=== PATIENT | male | born 1960 | race Caucasian/White ===

== ENCOUNTER 2017-01-15 16:31 | Emergency (ER) | payer OTHER ==
[2017-01-15 16:55] VITALS: BP 137/71; PULSE 64; TEMP 98.2; BMI 37.0
--- NOTE | 2017-01-15 17:33 | PDOC ---
History of Present Illness - General Chief Complaint: Back Pain Stated Complaint: BACK ACHE Time Seen by Provider: 01/15/17 17:15 History Source: Patient Exam Limitations: No Limitations - History of Present Illness Initial Comments: CHIEF COMPLAINT: 56 y/o afebrile male with PMH slipped disc L4-L5, HTN c/o left low back pain radiating into his left leg. HISTORY OF PRESENT ILLNESS: The patient states the pain started a week ago without trauma. He doesn't remember doing anything in particular when it started. 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 He denies trauma to back, fall, saddle anesthesia, midline lumbar spine pain, numbness/ tingling in LEs. The patient is already on Naproxen and gabapentin for his normal back pain. He sees a neurologist for his back as well but has not called him yet for these symptoms. Vital signs on arrival are within normal limits. REVIEW OF SYSTEMS: GENERAL/CONSTITUTIONAL: No fever/chills. No weakness. No weight change. GASTROINTESTINAL: No abd pain, nausea, vomiting, diarrhea. GENITOURINARY: No dysuria, frequency, or change in urination. MUSCULOSKELETAL: No joint or muscle swelling or pain. No neck pain. +left low back pain. SKIN: No rash or easy bruising. NEUROLOGIC: No headache, vertigo, loss of consciousness, or loss of sensation. PHYSICAL EXAM: GENERAL: The patient is awake, alert, and fully oriented, in no acute distress. He is well appearing and ambulatory with normal gait. HEAD: Normal with no signs of trauma. ABDOMEN: Soft, non-distended, non-tender even to deep palpation, no hepatomegaly or splenomegaly, no masses. BACK: No midline lumbar spine TTP or step offs. Minimal TTP of left lumbar paravertebral muscles. EXTREMITIES: Normal range of motion, no edema. NEUROLOGICAL: Normal speech, normal gait. CN II-XII grossly intact. No saddle anesthesia. Equal straight leg raise b/l. 2+ LE reflexes. SKIN: Warm, dry, normal turgor, no rashes or lesions noted. Past History - Past Medical History Allergies/Adverse Reactions: Allergies Allergy/AdvReac Type Severity Reaction Status Date / Time Shellfish Allergy Swelling Verified 01/15/17 16:35 Home Medications: Ambulatory Orders Methocarbamol [Robaxin -] 1,000 mg PO TID #20 tablet 01/15/17 HTN: Yes - Immunization History Td Vaccination: No - Psycho/Social/Smoking Cessation Hx Anxiety: No Suicidal Ideation: No Smoking Status: No Smoking History: Never smoked Number of Cigarettes Smoked Daily: 0 Hx Alcohol Use: No Drug/Substance Use Hx: No Substance Use Type: None *Physical Exam - Vital Signs Last Vital Signs Temp Pulse Resp BP Pulse Ox 98.2 F 64 18 137/71 97 01/15/17 16:32 01/15/17 16:32 01/15/17 16:32 01/15/17 16:32 01/15/17 16:32 Medical Decision Making - Medical Decision Making A/P: 56 y/o male with left lower back pain. Pain seems muscular in nature. No report of an injury. since the patient is already taking naproxen and gabapentin I will discharge to home with rx for robaxin. Informed him it may cause drowsiness. Instructed him to apply heat and stretch the affected area. Suggested he f/u with his Neurologist in 1 week if no improvement in symptoms, and return to the ER with any worsening or concerning symptoms. The patient verbalizes understanding of all instructions, has no further questions and is awaiting discharge. *DC/Admit/Observation/Transfer Diagnosis at time of Disposition: Back pain Qualifiers: Back pain location: low back pain Chronicity: acute Back pain laterality: left Sciatica presence: with sciatica Sciatica laterality: sciatica of left side Qualified Code(s): M54.42 - Lumbago with sciatica, left side - Discharge Dispostion Disposition: HOME Condition at time of disposition: Good - Prescriptions Prescriptions: Methocarbamol [Robaxin -] 1,000 mg PO TID #20 tablet - Referrals Referrals: Mika Bergeron MD [Primary Care Provider] - - Patient Instructions Printed Discharge Instructions: DI for Back Pain With Sciatica Additional Instructions: Discharge Instructions: -Take Robaxin as prescribed if needed for back pain; may cause drowsiness -Continue taking all other medication as prescribed -Apply heating pad to affected area -Massage affected area -Follow up with your back doctor/Neurologist within 1 week if no improvement in symptoms
== END 2017-01-15 17:42 | disposition home or self-care (01) ==
LOC: JER 16:31 → JERFT 16:31
DX: M54.42 Lumbago with sciatica, left side (principal); I10 Essential (primary) hypertension
CPT/HCPCS: 99281-25

== ENCOUNTER 2018-07-20 11:18 | Emergency (ER) | payer OTHER ==
[2018-07-20 11:25] VITALS: BP 114/70; PULSE 87; TEMP 98.3; BMI 38.2
[2018-07-20] MEDS ORDERED: FAMOTIDINE 20 MG/50 ML IVPB 20 MG/50 ML MG IVPB ONE ×2 (12:31→12:47)
[2018-07-20] MEDS ORDERED: ONDANSETRON 4 MG/2 ML VIAL IVPUSH ONE (12:31)
[2018-07-20] MEDS ORDERED: SODIUM CHLORIDE 1,000 ML IV STA (12:31)
--- NOTE | 2018-07-20 12:44 | PDOC ---
Attending Attestation - Resident Resident Name: EhabigailEliseo - ED Attending Attestation I have performed the following: I have examined & evaluated the patient, The case was reviewed & discussed with the resident, I agree w/resident's findings & plan, Exceptions are as noted - HPI HPI: 07/20/18 16:28 Agree with residents HPI - Physicial Exam PE: 07/20/18 16:28 Agree with Residents PE - Medical Decision Making 07/20/18 16:29 58 years old presents emergency Department with nausea vomiting diarrhea and epigastric abdominal discomfort No travel no sick contacts well-appearing mild upper abdominal discomfort on examination We'll check labs hydrate GI cocktail observe and reassess Reevaluation patient feels much better now tolerating fluids by mouth abdominal pain is him is completely resolved Labs notable for slightly elevated WBC which is consistent with a viral process no indication for imaging at this time Patient instructed to return to the emergency department immediately for any severe worsening symptoms any worsening abdominal pain inability tolerate fluids or for any concerns. Findings, need follow-up and strict return instructions discussed patient.
[2018-07-20] MEDS ORDERED: ONDANSETRON 4 MG/2 ML VIAL ONE (12:47)
[2018-07-20 12:54] LABS: BASO % 0.7 % (0-2.0); EOS % 1.4 % (0-4.5); HEMATOCRIT 47.2 % (35.4-49); LYMPH % 9.9 % (8-40); MCH 28.4 pg (25.7-33.7); MCHC 33.9 g/dl (32.0-35.9); MEAN CELL VOLUME 83.8 fl (80-96); MEAN PLT VOLUME 9.1 fl (7.5-11.1); MONO % 8.9 % (3.8-10.2); NEUT % 79.1 % (42.8-82.8); PLATELET COUNT 365 K/MM3 (134-434); RBC 5.64 M/mm3 (4.00-5.60); RDW 14.6 % (11.9-15.9); WHITE BLOOD COUNT 15.1 K/mm3 (4.0-10.0)
[2018-07-20 13:30] LABS: ALK PHOS 94 U/L (45-117); ANION GAP 7 MMOL/L (8-16); BILIRUBIN,TOTAL 0.5 mg/dL (0.2-1); BLOOD UREA NITROGEN 31 mg/dL (7-18); CALCIUM 8.8 mg/dL (8.5-10.1); CHLORIDE 104 mmol/L (98-107); CO2 28 mmol/L (21-32); CREATININE 1.3 mg/dL (0.55-1.3); GLUCOSE,RANDOM 115 mg/dL (74-106); LIPASE 73 U/L (73-393); POTASSIUM 3.8 mmol/L (3.5-5.1); SGOT/AST 19 U/L (15-37); SGPT/ALT 28 U/L (13-61); SODIUM 138 mmol/L (136-145); TOT PROT 7.5 g/dl (6.4-8.2)
[2018-07-20] MEDS ORDERED: SODIUM CHLORIDE 0.9% 1000 ML INFUS.BAG IV ONE (14:34)
[2018-07-20] MEDS ORDERED: ACETAMINOPHEN 1000 MG/100 ML VIAL (NON FORMULARY) IVPB ONE (14:34)
[2018-07-20 14:44] LABS: URINE APPEARANCE CLEAR; URINE BILIRUBIN NEGATIVE (<2.0 mg/dL); URINE COLOR YELLOW; URINE GLUCOSE (UA) NEGATIVE (NEGATIVE); URINE KETONE NEGATIVE (NEGATIVE); URINE LEUK ESTERASE NEGATIVE (NEGATIVE); URINE NITRITE NEGATIVE (NEGATIVE); URINE PROTEIN NEGATIVE (NEGATIVE); URINE UROBILINOGEN NEGATIVE mg/dL (0.2-1.0)
[2018-07-20] MEDS ORDERED: ACETAMINOPHEN INJECTION 100 ML IVPB ONE (15:05)
--- NOTE | 2018-07-20 15:40 | PDOC ---
History of Present Illness - General Chief Complaint: Pain Stated Complaint: ABD PAIN Time Seen by Provider: 07/20/18 12:26 History Source: Patient Exam Limitations: No Limitations - History of Present Illness Initial Comments: 07/20/18 15:33 Patient is a 58M with history of HTN here today complaining of 12 hours of epigastric abdominal pain and diarrhea after eating thai food. Patient reports multiple episodes of watery diarrhea that kept him up all night. No fevers, chills, vomiting. Endorses nausea. Denies dysuria, prior abdominal surgery. Denies chest pain, shortness of breath, leg swelling. Past History - Past Medical History Allergies/Adverse Reactions: Allergies Allergy/AdvReac Type Severity Reaction Status Date / Time Shellfish Allergy Swelling Verified 07/20/18 11:24 Home Medications: Ambulatory Orders Ondansetron [Zofran *Odt*] 8 mg SL BID #10 od.tablet 07/20/18 COPD: No HTN: Yes Other medical history: obesity - Immunization History Td Vaccination: No - Suicide/Smoking/Psychosocial Hx Smoking Status: No Smoking History: Never smoked Number of Cigarettes Smoked Daily: 0 Information on smoking cessation initiated: No Hx Alcohol Use: No Drug/Substance Use Hx: No Substance Use Type: None Review of Systems - Review of Systems Comments:: 07/20/18 15:36 GENERAL/CONSTITUTIONAL: No fever or chills. No weakness. HEAD, EYES, EARS, NOSE AND THROAT: No change in vision. No sore throat. CARDIOVASCULAR: No chest pain or shortness of breath RESPIRATORY: No cough, wheezing, or hemoptysis. GASTROINTESTINAL: +nausea, +diarrhea GENITOURINARY: No dysuria, frequency, or change in urination. MUSCULOSKELETAL: No joint or muscle swelling or pain. No neck or back pain. SKIN: No rash NEUROLOGIC: No headache, vertigo, loss of consciousness, or change in strength/ sensation. ENDOCRINE: No increased thirst. No abnormal weight change HEMATOLOGIC/LYMPHATIC: No anemia, easy bleeding, or history of blood clots. ALLERGIC/IMMUNOLOGIC: No hives or skin allergy. *Physical Exam - Vital Signs Last Vital Signs Temp Pulse Resp BP Pulse Ox 98.3 F 87 18 114/70 98 07/20/18 11:22 07/20/18 11:22 07/20/18 11:22 07/20/18 11:22 07/20/18 11:22 - Physical Exam Comments: 07/20/18 15:36 GENERAL: Awake, alert, and fully oriented, in no acute distress HEAD: No signs of trauma, normocephalic, atraumatic EYES: PERRLA, EOMI, sclera anicteric, conjunctiva clear ENT: Auricles normal inspection, hearing grossly normal, nares patent, oropharynx clear without exudates. Dry mucosa NECK: Normal ROM, supple, no lymphadenopathy, JVD, or masses LUNGS: No distress, speaks full sentences, clear to auscultation bilaterally HEART: Regular rate and rhythm, normal S1 and S2, no murmurs, rubs or gallops, peripheral pulses normal and equal bilaterally. ABDOMEN: Soft, mild epigastric abdominal pain, normoactive bowel sounds. No guarding, no rebound. No masses EXTREMITIES: Normal inspection, Normal range of motion, no edema. No clubbing or cyanosis. NEUROLOGICAL: Cranial nerves II through XII grossly intact. Normal speech, normal gait, no focal sensorimotor deficits SKIN: Warm, Dry, normal turgor, no rashes or lesions noted. ED Treatment Course - LABORATORY CBC & Chemistry Diagram: 07/20/18 12:33 07/20/18 12:44 - ADDITIONAL ORDERS Additional order review: Laboratory Results 07/20/18 07/20/18 14:30 12:44 Sodium 138 Potassium 3.8 Chloride 104 Carbon Dioxide 28 Anion Gap 7 L BUN 31 H Creatinine 1.3 Creat Clearance w eGFR 56.31 Random Glucose 115 H Calcium 8.8 Total Bilirubin 0.5 AST 19 ALT 28 Alkaline Phosphatase 94 Total Protein 7.5 Albumin 4.0 Lipase 73 Urine Color Yellow Urine Appearance Clear Urine pH 5.0 Ur Specific [place] 1.025 Urine Protein Negative Urine Glucose (UA) Negative Urine Ketones Negative Urine Blood Negative Urine Nitrite Negative Urine Bilirubin Negative Urine Urobilinogen Negative Ur Leukocyte Esterase Negative 07/20/18 12:33 RBC 5.64 H MCV 83.8 MCHC 33.9 RDW 14.6 MPV 9.1 Neutrophils % 79.1 Lymphocytes % 9.9 Monocytes % 8.9 Eosinophils % 1.4 Basophils % 0.7 - Medications Given in the ED: ED Medications Discontinued Medications Generic Name Dose Route Start Last Admin Trade Name Freq PRN Reason Stop Dose Admin Acetaminophen 1,000 mg 07/20/18 14:34 07/20/18 15:09 Ofirmev Injection - IVPB 07/20/18 14:35 1,000 mg ONCE ONE Administration Famotidine/Sodium Chloride 20 mg in 50 mls @ 100 mls/hr 07/20/18 12:31 12:54 Pepcid 20 Mg Premixed Ivpb - IVPB 07/20/18 13:00 100 mls/hr ONCE ONE Administration Sodium Chloride 1,000 mls @ 1,000 mls/hr 07/20/18 12:31 07/20/18 12:54 Normal Saline - IV 07/20/18 13:30 1,000 mls/hr ASDIR STA Administration Ondansetron HCl 4 mg 07/20/18 12:31 07/20/18 12:54 Zofran Injection IVPUSH 07/20/18 12:32 4 mg ONCE ONE Administration Sodium Chloride 1,000 ml 07/20/18 14:34 07/20/18 15:09 Normal Saline - IV 07/20/18 14:35 1,000 ml ONCE ONE Administration Medical Decision Making - Medical Decision Making 07/20/18 15:36 Patient is 58M here today with diarrhea and epigastric abdominal pain. Vitals normal and stable. DDx includes, but is not limited to: colitis, food poisoning , atypical acs. Low suspicion for acs, but patient is 58 with epigastric abd pain. Will do abdominal labs, trop, ekg. EKG shows normal sinus rhythm with rate of 68. No st elevations/depressions. Normal axis. Normal intervals. No significant t wave abnormalities. 07/20/18 15:40 Laboratory Tests 07/20/18 07/20/18 07/20/18 12:33 12:44 14:30 WBC 15.1 H Hgb 16.0 Plt Count 365 BUN 31 H Creatinine 1.3 Random Glucose 115 H Urine Nitrite Negative Ur Leukocyte Esterase Negative CBC shows leukocytosis. CMP reassuring. UA clear. Feeling better after 2L, tylenol, zofran, pepcid. Believe patient has food poisoning. No risk factors for bacterial colitis. No risk factors for C diff. Will discharge home with return precautions. *DC/Admit/Observation/Transfer Diagnosis at time of Disposition: Diarrhea, Abdominal pain - Discharge Dispostion Disposition: HOME Condition at time of disposition: Good Decision to Admit order: No - Prescriptions Prescriptions: Ondansetron [Zofran *Odt*] 8 mg SL BID #10 od.tablet - Referrals Referrals: Cathi Aguilar MD [Primary Care Provider] - - Patient Instructions Printed Discharge Instructions: DI for Abdominal Pain-Adult, DI for Diarrhea and Traveler's Diarrhea -- Adult Additional Instructions: Please return if you have any new, worsening or concerning symptoms, especially if you have fever, increasing pain. Please follow up with your primary care doctor. - Post Discharge Activity Forms/Work/School Notes: Back to Work
--- NOTE | 2018-07-20 17:10 | EKG ---
Test Reason : Blood Pressure : / mmHG Vent. Rate : 068 BPM Atrial Rate : 068 BPM P-R Int : 172 ms QRS Dur : 090 ms QT Int : 410 ms P-R-T Axes : 055 -43 -07 degrees QTc Int : 435 ms POOR DATA QUALITY, INTERPRETATION MAY BE ADVERSELY AFFECTED NORMAL SINUS RHYTHM LEFT AXIS DEVIATION VOLTAGE CRITERIA FOR LEFT VENTRICULAR HYPERTROPHY ABNORMAL ECG WHEN COMPARED WITH ECG OF 26-MAY-2018 14:27, NO SIGNIFICANT CHANGE WAS FOUND Confirmed by DAE DAMIAN MD ([id number]) on 07/20/2018 5:09:54 PM Referred By: Confirmed By:DAE DAMIAN MD
== END 2018-07-20 16:31 | disposition home or self-care (01) ==
LOC: JER 11:18
DX: R10.13 Epigastric pain (principal); R11.2 Nausea with vomiting, unspecified; R19.7 Diarrhea, unspecified; I10 Essential (primary) hypertension; E66.9 Obesity, unspecified; Z68.38 Body mass index [BMI] 38.0-38.9, adult
CPT/HCPCS: 36415; 80053; 81003; 82550; 83690; 84484; 85025; 93005; 93010; 99283-25; J0131; J7030

== ENCOUNTER 2018-07-21 05:08 | Inpatient (IN) | payer OTHER ==
[2018-07-21 05:27] VITALS: BMI 37.4
--- NOTE | 2018-07-21 06:25 | PDOC ---
History of Present Illness - History of Present Illness Initial Comments: 58yo M with PMH of HTN presenting with epigastric pain since Tuesday. Patient presented yesterday for similar complaint and worsens because his pain has worsened, now rated 10/10, up from 8/10. He has had frequent episodes of profuse , watery diarrhea without blood. Patient endorses nausea, but not vomiting. He has not taken anything at home for his symptoms except for immodium on Tuesday. Denies history of heavy alcohol consumption, abdominal surgeries, ulcers, gallstones, kidney stones, or pancreatitis. Last had a colonoscopy 8 years ago. Patient reports some shortness of breath when his abdominal pain exacerbates. No fevers, chills, chest pain, dysuria, or hematuria. <Court Calzada - Last Filed: 07/21/18 08:17> <Eliseo Oswald - Last Filed: 07/21/18 13:16> - General Chief Complaint: Pain Stated Complaint: ABD PAIN Time Seen by Provider: 07/21/18 05:59 Past History - Past Medical History COPD: No HTN: Yes - Immunization History Td Vaccination: No - Suicide/Smoking/Psychosocial Hx Smoking Status: No Smoking History: Never smoked Have you smoked in the past 12 months: No Number of Cigarettes Smoked Daily: 0 Information on smoking cessation initiated: No Hx Alcohol Use: No Drug/Substance Use Hx: No Substance Use Type: None <Court Calzada - Last Filed: 07/21/18 08:17> <Eliseo Oswald - Last Filed: 07/21/18 13:16> - Past Medical History Allergies/Adverse Reactions: Allergies Allergy/AdvReac Type Severity Reaction Status Date / Time No Known Drug Allergies Allergy Verified 07/21/18 05:22 Shellfish Allergy Swelling Verified 07/21/18 05:21 Home Medications: Ambulatory Orders Ondansetron [Zofran *Odt*] 8 mg SL BID #10 od.tablet 07/20/18 Review of Systems - Review of Systems Comments:: Constitutional: no fever, no chills HEENT: no throat pain, no dysphagia Cardiovascular: no chest pain, no palpitations Respiratory: no cough, +shortness of breath Gastrointestinal: +abdominal pain, +nausea, no vomiting, +diarrhea Genitourinary: no dysuria, no frequency Musculoskeletal: no myalgia, no arthralgia Skin: no rash, no itching Neurologic: no headache, no dizziness <Court Calzada - Last Filed: 07/21/18 08:17> *Physical Exam - Vital Signs Last Vital Signs Temp Pulse Resp BP Pulse Ox 98.3 F 67 18 115/73 97 07/21/18 05:22 07/21/18 05:22 07/21/18 05:22 07/21/18 05:22 07/21/18 05:22 - Physical Exam Comments: General: Awake, alert, and fully oriented, in no acute distress Head: No signs of trauma Eyes: EOMI, sclera anicteric ENT: Moist mucus membranes Neck: Normal ROM, supple Lungs: Lungs clear, Normal breath sounds Cardio: Regular rhythm, S1 and S2 present Abdomen: Tender to palpation in the epigastrium and RUQ; abdomen distended, soft. No guarding, no rebound, no masses Extremities: Normal range of motion, Distal pulses present SKIN: Warm, Dry, normal turgor Neurologic: Cranial nerves II through XII grossly intact. Normal speech <Court Calzada - Last Filed: 07/21/18 08:17> - Vital Signs Last Vital Signs Temp Pulse Resp BP Pulse Ox 98.3 F 67 18 115/73 97 07/21/18 05:22 07/21/18 05:22 07/21/18 05:22 07/21/18 05:22 07/21/18 05:22 <Eliseo Oswald - Last Filed: 07/21/18 13:16> ED Treatment Course - LABORATORY CBC & Chemistry Diagram: 07/21/18 06:55 07/21/18 06:55 <Court Calzada - Last Filed: 07/21/18 08:17> - LABORATORY CBC & Chemistry Diagram: 07/21/18 06:55 07/21/18 06:55 - ADDITIONAL ORDERS Additional order review: Laboratory Results 07/21/18 07/21/18 09:10 06:55 Sodium 143 Potassium 3.4 L Chloride 108 H Carbon Dioxide 24 Anion Gap 12 BUN 20 H Creatinine 1.0 Creat Clearance w eGFR > 60 Random Glucose 100 Calcium 8.3 L Total Bilirubin 0.5 AST 10 L ALT 26 Alkaline Phosphatase 84 Troponin I < 0.02 Total Protein 7.0 Albumin 3.7 Lipase 63 L Urine Color Ltyellow Urine Appearance Clear Urine pH 5.0 Ur Specific [place] 1.019 Urine Protein Negative Urine Glucose (UA) Negative Urine Ketones Negative Urine Blood Negative Urine Nitrite Negative Urine Bilirubin Negative Urine Urobilinogen Negative Ur Leukocyte Esterase Negative 07/21/18 06:55 RBC 5.34 MCV 83.0 MCHC 34.0 RDW 14.5 MPV 9.1 Neutrophils % 74.2 Lymphocytes % 13.5 D Monocytes % 10.2 Eosinophils % 2.0 Basophils % 0.1 - RADIOLOGY Radiology Studies Ordered: Category Date Time Status ABDOMEN & PELVIS CT WITH CONTR [CT] Stat CT Scan 07/21/18 10:46 Completed - Medications Given in the ED: ED Medications Discontinued Medications Generic Name Dose Route Start Last Admin Trade Name Andi PRN Reason Stop Dose Admin Acetaminophen 1,000 mg 07/21/18 09:43 07/21/18 10:14 Ofirmev Injection - IVPB 07/21/18 09:44 1,000 mg ONCE ONE Administration Sodium Chloride 1,000 mls @ 1,000 mls/hr 07/21/18 06:47 07/21/18 09:47 Normal Saline - IV 07/21/18 07:46 1,000 mls/hr ASDIR STA Administration Morphine Sulfate 4 mg 07/21/18 06:47 07/21/18 09:48 Morphine Injection - IVPUSH 07/21/18 06:48 Not Given ONCE ONE Ondansetron HCl 4 mg 07/21/18 06:47 07/21/18 10:14 Zofran Injection IVPUSH 07/21/18 06:48 Not Given ONCE ONE <Eliseo Oswald - Last Filed: 07/21/18 13:16> Medical Decision Making - Medical Decision Making 58yo M with PMH of HTN presenting with epigastric pain since Tuesday. -DDX includes but not limited to gastroenteritis, cholecystitis, hepatitis, pancreatitis, gastritis -Repeat labs -RUQ ultrasound -1L NS, 4mg morphine 07/21/18 07:05 Patient signed out to Dr. Oswald <Court Calzada - Last Filed: 07/21/18 08:17> *DC/Admit/Observation/Transfer <Court Calzada - Last Filed: 07/21/18 08:17> - Discharge Dispostion Decision to Admit order: Yes Decision to Admit order Date/Time: Decision to Admit Order Category Date Time Status Decision to Admit to Hospital Routine Admission 07/21/18 13:06 Active <Eliseo Oswald - Last Filed: 07/21/18 13:16> Diagnosis at time of Disposition: SBO (small bowel obstruction) - Discharge Dispostion Condition at time of disposition: Stable
[2018-07-21] MEDS ORDERED: ONDANSETRON 4 MG/2 ML VIAL IVPUSH ONE (06:47)
[2018-07-21] MEDS ORDERED: SODIUM CHLORIDE 1,000 ML IV STA (06:47)
[2018-07-21] MEDS ORDERED: morphine CARPU-JECT 4 MG/1 ML DISP.SYRIN IVPUSH ONE (06:47)
--- NOTE | 2018-07-21 06:47 | PDOC ---
Attending Attestation - Resident Resident Name: ElsiCherelleCourt - ED Attending Attestation I have performed the following: I have examined & evaluated the patient, The case was reviewed & discussed with the resident, I agree w/resident's findings & plan - HPI HPI: 07/21/18 06:44 58-year-old male presents for second ED visit for persistent abdominal pain. Patient awoke about 24 hours ago with epigastric pain and nonbloody diarrhea, nausea but no vomiting. Symptoms occurred after eating [place] food, was seen in the emergency department and noted to have mild leukocytosis but otherwise normal chemistries, symptoms improved after GI cocktail, and he was discharged home. Returns now with persistent and worsening epigastric pain with nausea, another episode of nonbloody diarrhea prior to arrival. No fevers or chills, no history of postprandial abdominal pain, has no cardiopulmonary complaints whatsoever. No urinary complaints. Had endoscopy and colonoscopy about 8 years ago, was told he might have a " small ulcer" but does not recall any interventions. Denies any excessive alcohol or NSAID use, no recent travel or antibiotics, no smoking. - Physicial Exam PE: 07/21/18 06:46 Vital signs normal Obese No jaundice or pallor Heart is regular, lungs are clear Abdomen is distended but soft, tender with guarding in the right upper quadrant and epigastric region, no rebound, no CVA tenderness No rash - Medical Decision Making 07/21/18 06:46 58-year-old male with persistent epigastric/right upper quadrant pain for one day, nausea with loose stool. Prior workup notable for leukocytosis, no improvement with antacids. Question biliary etiology, prior lipase and LFTs was normal. No suspicion for ACS, previously EKG was normal. Repeat labs including lipase Ultrasound of the right upper quadrant to assess for biliary etiology Ultrasound negative, may require CT of the abdomen and pelvis Reassess
[2018-07-21 07:48] LABS: BASO % 0.1 % (0-2.0); HEMATOCRIT 44.3 % (35.4-49); HEMOGLOBIN 15.1 GM/dL (11.7-16.9); LYMPH % 13.5 % (8-40); MCH 28.2 pg (25.7-33.7); MEAN PLT VOLUME 9.1 fl (7.5-11.1); MONO % 10.2 % (3.8-10.2); NEUT % 74.2 % (42.8-82.8); PLATELET COUNT 277 K/MM3 (134-434); RBC 5.34 M/mm3 (4.00-5.60); RDW 14.5 % (11.9-15.9); WHITE BLOOD COUNT 8.7 K/mm3 (4.0-10.0)
[2018-07-21 08:07] LABS: ALBUMIN 3.7 g/dl (3.4-5.0); ALK PHOS 84 U/L (45-117); ANION GAP 12 MMOL/L (8-16); BILIRUBIN,TOTAL 0.5 mg/dL (0.2-1); BLOOD UREA NITROGEN 20 mg/dL (7-18); CALCIUM 8.3 mg/dL (8.5-10.1); CHLORIDE 108 mmol/L (98-107); CO2 24 mmol/L (21-32); GLUCOSE,RANDOM 100 mg/dL (74-106); LIPASE 63 U/L (73-393); POTASSIUM 3.4 mmol/L (3.5-5.1); SGOT/AST 10 U/L (15-37); SGPT/ALT 26 U/L (13-61); SODIUM 143 mmol/L (136-145)
[2018-07-21] MEDS ORDERED: ONDANSETRON 4 MG/2 ML VIAL ONE (09:10)
[2018-07-21] MEDS ORDERED: morphine SULFATE 4 MG/ML VIAL ONE (09:10)
[2018-07-21 09:23] LABS: URINE APPEARANCE CLEAR; URINE BILIRUBIN NEGATIVE (<2.0 mg/dL); URINE COLOR LTYELLOW; URINE GLUCOSE (UA) NEGATIVE (NEGATIVE); URINE KETONE NEGATIVE (NEGATIVE); URINE LEUK ESTERASE NEGATIVE (NEGATIVE); URINE NITRITE NEGATIVE (NEGATIVE); URINE PROTEIN NEGATIVE (NEGATIVE); URINE UROBILINOGEN NEGATIVE mg/dL (0.2-1.0)
[2018-07-21] MEDS ORDERED: ACETAMINOPHEN 1000 MG/100 ML VIAL (NON FORMULARY) IVPB ONE (09:43)
[2018-07-21] MEDS ORDERED: ACETAMINOPHEN INJECTION 100 ML IVPB ONE (10:09)
--- NOTE | 2018-07-21 10:10 | PDOC ---
*Physical Exam - Vital Signs Last Vital Signs Temp Pulse Resp BP Pulse Ox 98.3 F 67 18 115/73 97 07/21/18 05:22 07/21/18 05:22 07/21/18 05:22 07/21/18 05:22 07/21/18 05:22 ED Treatment Course - LABORATORY CBC & Chemistry Diagram: 07/21/18 06:55 07/21/18 06:55 - ADDITIONAL ORDERS Additional order review: Laboratory Results 07/21/18 07/21/18 09:10 06:55 Sodium 143 Potassium 3.4 L Chloride 108 H Carbon Dioxide 24 Anion Gap 12 BUN 20 H Creatinine 1.0 Creat Clearance w eGFR > 60 Random Glucose 100 Calcium 8.3 L Total Bilirubin 0.5 AST 10 L ALT 26 Alkaline Phosphatase 84 Troponin I < 0.02 Total Protein 7.0 Albumin 3.7 Lipase 63 L Urine Color Ltyellow Urine Appearance Clear Urine pH 5.0 Ur Specific [place] 1.019 Urine Protein Negative Urine Glucose (UA) Negative Urine Ketones Negative Urine Blood Negative Urine Nitrite Negative Urine Bilirubin Negative Urine Urobilinogen Negative Ur Leukocyte Esterase Negative 07/21/18 06:55 RBC 5.34 MCV 83.0 MCHC 34.0 RDW 14.5 MPV 9.1 Neutrophils % 74.2 Lymphocytes % 13.5 D Monocytes % 10.2 Eosinophils % 2.0 Basophils % 0.1 Medical Decision Making - Medical Decision Making 07/21/18 10:[address] Calzada. Patient is 58M with history of HTN here today with diarrhea, epigastric abdominal pain. Patient was evaluated in the ED yesterday by myself where he was given fluids, tylenol, pepcid and discharged with soft, nontender belly. Patient's labs normal today, pending US because he had more RUQ pain today. 07/21/18 10:56 US shows ?fatty liver, normal gallbladder. boiler tender to palpation in RUQ. CT ordered. 07/21/18 13:33 CT shows possible partial SBO. Patient still having RUQ pain. Will admit for SBO. Dr Gonzalez cuevas. Signed out to Dr Aguilar. 07/21/18 13:47 Dr Roth consulted, will evaluate patient. *DC/Admit/Observation/Transfer Diagnosis at time of Disposition: SBO (small bowel obstruction) - Discharge Dispostion Condition at time of disposition: Stable - Referrals - Patient Instructions - Post Discharge Activity
[2018-07-21] MEDS ORDERED: ONDANSETRON 4 MG/2 ML VIAL IVPUSH PRN (14:33)
[2018-07-21] MEDS ORDERED: MORPHINE SULFATE 2 MG/ML VIAL IVPUSH PRN (14:37)
--- NOTE | 2018-07-21 14:37 | HP ---
Admitting History and Physical - Primary Care Physician PCP: Cathi Aguilar - Admission History of Present Illness: Pt seen/ examined in er chart reviewed Discussed with er resident In summary 58-year-old male presents for second ED visit for persistent abdominal pain. Patient awoke about 24 hours ago with epigastric pain and nonbloody diarrhea, nausea but no vomiting. Symptoms occurred after eating Khmer food, was seen in the emergency department and noted to have mild leukocytosis but otherwise normal chemistries, symptoms improved after GI cocktail, and he was discharged home. Returns now with persistent and worsening epigastric pain with nausea, another episode of non bloody diarrhea prior to arrival. No fevers or chills, no history of postprandial abdominal pain, has no cardiopulmonary complaints whatsoever. No urinary complaints. ct scan - showed partial sbo pt to be kept under observation pt at present comfortable pain ok- got morphine. History Source: Patient Limitations to Obtaining History: No Limitations - Past Medical History Additional Past Medical History: overweight - Smoking History Smoking history: Never smoked Have you smoked in the past 12 months: No Aproximately how many cigarettes per day: 0 - Alcohol/Substance Use Hx Alcohol Use: No Home Medications - Allergies Allergies/Adverse Reactions: Allergies Allergy/AdvReac Type Severity Reaction Status Date / Time No Known Drug Allergies Allergy Verified 07/21/18 05:22 Shellfish Allergy Swelling Verified 07/21/18 05:21 - Home Medications Home Medications: Ambulatory Orders Ondansetron [Zofran *Odt*] 8 mg SL BID #10 od.tablet 07/20/18 Family Disease History - Family Disease History Family History: Unremarkable Review of Systems - Review of Systems Constitutional: reports: Weakness Eyes: reports: No Symptoms HENT: reports: No Symptoms Neck: reports: No Symptoms Cardiovascular: reports: No Symptoms Respiratory: reports: No Symptoms Gastrointestinal: reports: Abdominal Pain, Diarrhea Genitourinary: reports: No Symptoms Musculoskeletal: reports: No Symptoms Neurological: reports: No Symptoms Psychiatric: reports: No Symptoms Physical Examination Vital Signs: Vital Signs Temperature 98.3 F 07/21/18 05:22 Pulse Rate 67 07/21/18 05:22 Respiratory Rate 18 07/21/18 05:22 Blood Pressure 115/73 07/21/18 05:22 O2 Sat by Pulse Oximetry (%) 97 07/21/18 05:22 Constitutional: Yes: No Distress, Calm, Obese Eyes: Yes: Conjunctiva Clear, PERRL HENT: Yes: Nasal Congestion Neck: Yes: Supple Cardiovascular: Yes: Regular Rate and Rhythm Respiratory: Yes: CTA Bilaterally Gastrointestinal: Yes: Soft, Abdomen, Obese Edema: No Neurological: Yes: Alert Psychiatric: Yes: Alert Labs: CBC, BMP 07/21/18 06:55 07/21/18 06:55 Imaging - Results Cat Scan: Report Reviewed Ultrasound: Report Reviewed Problem List - Problems (1) Gastroenteritis Code(s): K52.9 - NONINFECTIVE GASTROENTERITIS AND COLITIS, UNSPECIFIED (2) SBO (small bowel obstruction) Code(s): K56.609 - UNSP INTESTNL OBST, UNSP TO PARTIAL VERSUS COMPLETE OBST (3) Abdominal pain Code(s): R10.9 - UNSPECIFIED ABDOMINAL PAIN Qualifiers: Abdominal location: generalized Qualified Code(s): R10.84 - Generalized abdominal pain (4) Diarrhea Code(s): R19.7 - DIARRHEA, UNSPECIFIED Qualifiers: Diarrhea type: presumed infectious Qualified Code(s): R19.7 - Diarrhea, unspecified Assessment/Plan Gastroenteritis Conservative management fluids liquid diet pain control ambulate will consult surgery but i dont believe need any surgical intervention Expect short stay will follow
[2018-07-21] MEDS: D5-1/2NS+20 MEQ KCL - 20 MEQ/1,000 ML INFUS.BAG IV SCH (16:45)
--- NOTE | 2018-07-21 17:40 | CONSULT ---
Consult Consult Specialty:: General Surgery Reason for Consultation:: abdominal pain - History of Present Illness Chief Complaint: abdominal pain and diarrhea History of Present Illness: 58yo male PMH obesity, chronic constipation, HTN presented with epigastric pain since Tuesday. Patient presented yesterday for similar complaint and worsens because his pain has worsened, now rated 10/10, up from 8/10. He has had frequent episodes of profuse, watery diarrhea without blood, he reported a meal of austrian fast food spare ribs and fried rice. Patient endorses nausea, but not vomiting. He has not taken anything at home for his symptoms except for immodium on Tuesday. Denies history of heavy alcohol consumption, abdominal surgeries, ulcers, gallstones, kidney stones, or pancreatitis. Last had a colonoscopy 8 years ago. we were called to assess. - History Source History Provided By: Patient, Medical Record Limitations to Obtaining History: No Limitations - Alcohol/Substance Use Hx Alcohol Use: No - Smoking History Smoking history: Never smoked Have you smoked in the past 12 months: No Aproximately how many cigarettes per day: 0 Home Medications - Allergies Allergies/Adverse Reactions: Allergies Allergy/AdvReac Type Severity Reaction Status Date / Time No Known Drug Allergies Allergy Verified 07/21/18 05:22 Shellfish Allergy Swelling Verified 07/21/18 05:21 - Home Medications Home Medications: Ambulatory Orders Ondansetron [Zofran *Odt*] 8 mg SL BID #10 od.tablet 07/20/18 Physical Exam Vital Signs: Vital Signs Temperature 98.3 F 07/21/18 05:22 Pulse Rate 67 07/21/18 05:22 Respiratory Rate 18 07/21/18 05:22 Blood Pressure 115/73 07/21/18 05:22 O2 Sat by Pulse Oximetry (%) 97 07/21/18 05:22 Labs: CBC, BMP 07/21/18 06:55 07/21/18 06:55 Imaging - Results Cat Scan: Report Reviewed, Image Reviewed (partial sbo pattern observed but no clear bowel pathology) Problem List - Problems (1) Gastroenteritis Assessment/Plan: 58 yo male MMP with ileus secondary to gastoenteritis. no acute surgical intervention is indicated. NPO and IVF hydration Advance diet as tolerated Cdiff, stool for ova and parasites symptomatic treatment will follow for serial exams Thank you for the opportunity to participate in the care of this patient. Code(s): K52.9 - NONINFECTIVE GASTROENTERITIS AND COLITIS, UNSPECIFIED (2) Abdominal pain Code(s): R10.9 - UNSPECIFIED ABDOMINAL PAIN Qualifiers: Abdominal location: generalized Qualified Code(s): R10.84 - Generalized abdominal pain (3) Back pain Code(s): M54.9 - DORSALGIA, UNSPECIFIED Qualifiers: Back pain location: low back pain Chronicity: acute Back pain laterality : left Sciatica presence: with sciatica Sciatica laterality: sciatica of left side Qualified Code(s): M54.42 - Lumbago with sciatica, left side (4) Diarrhea Code(s): R19.7 - DIARRHEA, UNSPECIFIED Qualifiers: Diarrhea type: presumed infectious Qualified Code(s): R19.7 - Diarrhea, unspecified (5) SBO (small bowel obstruction) Code(s): K56.609 - UNSP INTESTNL OBST, UNSP TO PARTIAL VERSUS COMPLETE OBST
[2018-07-22] MEDS: D5-1/2NS+20 MEQ KCL - 20 MEQ/1,000 ML INFUS.BAG IV SCH ×2 (02:34→12:15)
[2018-07-22 07:45] LABS: BASO % 0.2 % (0-2.0); EOS % 1.3 % (0-4.5); HEMATOCRIT 40.3 % (35.4-49); HEMOGLOBIN 13.8 GM/dL (11.7-16.9); LYMPH % 11.8 % (8-40); MCH 28.3 pg (25.7-33.7); MCHC 34.2 g/dl (32.0-35.9); MEAN CELL VOLUME 82.8 fl (80-96); MEAN PLT VOLUME 8.9 fl (7.5-11.1); NEUT % 75.7 % (42.8-82.8); PLATELET COUNT 243 K/MM3 (134-434); RBC 4.86 M/mm3 (4.00-5.60); RDW 14.8 % (11.9-15.9); WHITE BLOOD COUNT 7.6 K/mm3 (4.0-10.0)
[2018-07-22 08:43] LABS: ANION GAP 12 MMOL/L (8-16); BLOOD UREA NITROGEN 12 mg/dL (7-18); CALCIUM 8.1 mg/dL (8.5-10.1); CHLORIDE 102 mmol/L (98-107); CO2 24 mmol/L (21-32); CREATININE 0.9 mg/dL (0.55-1.3); GLUCOSE,RANDOM 111 mg/dL (74-106); POTASSIUM 3.3 mmol/L (3.5-5.1); SODIUM 138 mmol/L (136-145)
[2018-07-22 10:36] VITALS: BP 117/86; PULSE 83; TEMP 99.1
--- NOTE | 2018-07-22 12:59 | DS ---
Physical Examination Vital Signs: Vital Signs Temperature 99.1 F 07/22/18 08:30 Pulse Rate 83 07/22/18 08:30 Respiratory Rate 18 07/22/18 08:30 Blood Pressure 117/86 07/22/18 08:30 O2 Sat by Pulse Oximetry (%) 97 07/21/18 21:00 Findings/Remarks: feels better wants to go home denies pain diarrhea + but better afebrile Constitutional: Yes: No Distress, Calm Eyes: Yes: Conjunctiva Clear Neck: Yes: Supple Cardiovascular: Yes: Regular Rate and Rhythm Respiratory: Yes: CTA Bilaterally Gastrointestinal: Yes: Normal Bowel Sounds, Soft Edema: No Neurological: Yes: Alert Psychiatric: Yes: Alert Labs: CBC, BMP 07/22/18 06:00 07/22/18 06:00 Discharge Summary Reason For Visit: SMALL BOWEL OBSTRUCTION Current Active Problems Gastroenteritis (Acute) SBO (small bowel obstruction) (Acute) Hospital Course: admitted for gastroentritis treated with fluids better d/c home instructions about diet given f/u in office next week pt in agreement PS-- Pt takes Lotreal for bp-- advised to continue Condition: Stable - Instructions Referrals: Cathi Aguilar MD [Staff Physician] - Disposition: HOME - Home Medications Comprehensive Discharge Medication List: Ambulatory Orders Amlodipine Besylate/Benazepril [Lotrel 5-20 mg Capsule] 1 each PO DAILY #30 cap 07/22/18
[2018-07-22] MEDS ORDERED: POTASSIUM CHLORIDE TABS 20 MEQ TABLET.ER (FP) PO ONE (13:00)
--- NOTE | 2018-07-23 19:21 | EKG ---
Test Reason : Blood Pressure : / mmHG Vent. Rate : 061 BPM Atrial Rate : 061 BPM P-R Int : 182 ms QRS Dur : 096 ms QT Int : 396 ms P-R-T Axes : 047 -40 -20 degrees QTc Int : 398 ms NORMAL SINUS RHYTHM LEFT AXIS DEVIATION VOLTAGE CRITERIA FOR LEFT VENTRICULAR HYPERTROPHY NONSPECIFIC T WAVE ABNORMALITY ABNORMAL ECG WHEN COMPARED WITH ECG OF 20-JUL-2018 13:11, NO SIGNIFICANT CHANGE WAS FOUND Confirmed by LA LOCKHART MD ([id number]) on 07/23/2018 7:21:00 PM Referred By: Confirmed By:LA LOCKHART MD
== END 2018-07-22 14:16 | disposition home or self-care (01) | DRG 392 ==
LOC: JER 05:08 → JERBED 13:06 → J8W 18:10
PROVIDERS: ADMIT Internal Medicine; ATTEND Internal Medicine
DX: K52.9 Noninfective gastroenteritis and colitis, unspecified (principal); K56.609 Unspecified intestinal obstruction, unspecified as to partial versus complete obstruction; I10 Essential (primary) hypertension; E66.9 Obesity, unspecified; Z68.37 Body mass index [BMI] 37.0-37.9, adult; K59.00 Constipation, unspecified; M54.42 Lumbago with sciatica, left side
CPT/HCPCS: 36415; 74177-TC; 76705-TC; 80048; 80053; 81003; 83690; 84484; 85025; 85651; 87086; 93005; 93010; 99284-25; J0131; J7030

== ENCOUNTER 2018-07-25 06:37 | Emergency (ER) | payer OTHER ==
[2018-07-25 07:43] VITALS: BP 140/75; PULSE 55; TEMP 98.1; BMI 36.2
[2018-07-25] MEDS ORDERED: ONDANSETRON 4 MG/2 ML VIAL IVPUSH ONE (08:05)
[2018-07-25] MEDS ORDERED: SODIUM CHLORIDE 1,000 ML IV STA (08:05)
[2018-07-25] MEDS ORDERED: FAMOTIDINE 20 MG/50 ML IVPB 20 MG/50 ML MG IVPB ONE ×2 (08:05→08:52)
--- NOTE | 2018-07-25 08:51 | PDOC ---
History of Present Illness <Alfredo Hodges - Last Filed: 07/25/18 11:15> - General History Source: Patient Exam Limitations: No Limitations - History of Present Illness Initial Comments: 07/25/18 08:46 Patient is a 58M with history of HTN here today complaining of epigastric abdominal pain with associated distention for the past several days. Patient was seen in the ED twice for similar complaints with an admission. Labs were normal, patient was able to tolerate PO, but CT shows possible partial sbo. Patient was admitted and discharged with diagnosis of gastroenteritis. Patient is coming in today because the epigastric pain got worse and was not relieved with pepcid or gas-x. Denies nausea, vomiting, fevers, chills, diarrhea. Last bowel movement yesterday and was normal. Patient states that he has been unable to work. Denies chest pain, shortness of breath, cough. <Eliseo Oswald - Last Filed: 07/25/18 11:27> - General Chief Complaint: Pain, Acute Stated Complaint: ABD PAIN Time Seen by Provider: 07/25/18 07:47 Past History <Alfredo Hodges - Last Filed: 07/25/18 11:15> - Past Medical History Anemia: No Asthma: No Cancer: No Cardiac Disorders: No CVA: No COPD: No CHF: No Dementia: No Diabetes: No GI Disorders: No Disorders: No HTN: Yes Hypercholesterolemia: No Liver Disease: No Seizures: No Thyroid Disease: No - Surgical History Abdominal Surgery: No Appendectomy: No Cardiac Surgery: No Cholecystectomy: No Lung Surgery: No Neurologic Surgery: No Orthopedic Surgery: No - Immunization History Td Vaccination: No - Suicide/Smoking/Psychosocial Hx Smoking Status: No Smoking History: Never smoked Have you smoked in the past 12 months: No Number of Cigarettes Smoked Daily: 0 Information on smoking cessation initiated: No Hx Alcohol Use: No Drug/Substance Use Hx: No Substance Use Type: None Hx Substance Use Treatment: No <Eliseo Oswald - Last Filed: 07/25/18 11:27> - Past Medical History Allergies/Adverse Reactions: Allergies Allergy/AdvReac Type Severity Reaction Status Date / Time No Known Drug Allergies Allergy Verified 07/21/18 05:22 Shellfish Allergy Swelling Verified 07/21/18 05:21 Home Medications: Ambulatory Orders Amlodipine Besylate/Benazepril [Lotrel 5-20 mg Capsule] 1 each PO DAILY #30 cap 07/22/18 Metoclopramide HCl [Reglan -] 10 mg PO BID #10 tablet 07/25/18 Review of Systems - Review of Systems Comments:: 07/25/18 08:49 GENERAL/CONSTITUTIONAL: No fever or chills. No weakness. HEAD, EYES, EARS, NOSE AND THROAT: No change in vision. No sore throat. CARDIOVASCULAR: No chest pain or shortness of breath RESPIRATORY: No cough, wheezing, or hemoptysis. GASTROINTESTINAL: No nausea, vomiting, diarrhea or constipation. GENITOURINARY: No dysuria, frequency, or change in urination. MUSCULOSKELETAL: No joint or muscle swelling or pain. No neck or back pain. SKIN: No rash NEUROLOGIC: No headache, vertigo, loss of consciousness, or change in strength/ sensation. ENDOCRINE: No increased thirst. No abnormal weight change HEMATOLOGIC/LYMPHATIC: No anemia, easy bleeding, or history of blood clots. ALLERGIC/IMMUNOLOGIC: No hives or skin allergy. <Eliseo Oswald - Last Filed: 07/25/18 11:27> *Physical Exam - Vital Signs Last Vital Signs Temp Pulse Resp BP Pulse Ox 98.1 F 55 L 16 140/75 95 07/25/18 07:10 07/25/18 07:10 07/25/18 07:10 07/25/18 07:10 07/25/18 07:10 <Alfredo Hodges - Last Filed: 07/25/18 11:15> - Vital Signs Last Vital Signs Temp Pulse Resp BP Pulse Ox 98.1 F 55 L 16 140/75 95 07/25/18 07:10 07/25/18 07:10 07/25/18 07:10 07/25/18 07:10 07/25/18 07:10 - Physical Exam Comments: 07/25/18 08:49 GENERAL: Awake, alert, and fully oriented, in no acute distress HEAD: No signs of trauma, normocephalic, atraumatic EYES: PERRLA, EOMI, sclera anicteric, conjunctiva clear ENT: Auricles normal inspection, hearing grossly normal, nares patent, oropharynx clear without exudates. Moist mucosa NECK: Normal ROM, supple, no lymphadenopathy, JVD, or masses LUNGS: No distress, speaks full sentences, clear to auscultation bilaterally HEART: Regular rate and rhythm, normal S1 and S2, no murmurs, rubs or gallops, peripheral pulses normal and equal bilaterally. ABDOMEN: Soft, +epigastric tenderness, normoactive bowel sounds. No guarding, no rebound. No masses EXTREMITIES: Normal inspection, Normal range of motion, no edema. No clubbing or cyanosis. NEUROLOGICAL: Cranial nerves II through XII grossly intact. Normal speech, normal gait, no focal sensorimotor deficits SKIN: Warm, Dry, normal turgor, no rashes or lesions noted. <Eliseo Oswald - Last Filed: 07/25/18 11:27> ED Treatment Course - LABORATORY CBC & Chemistry Diagram: 07/25/18 09:59 07/25/18 08:41 - ADDITIONAL ORDERS Additional order review: Laboratory Results 07/25/18 08:41 Sodium 138 Potassium 4.6 Chloride 101 Carbon Dioxide 28 Anion Gap 10 BUN 14 Creatinine 1.0 Creat Clearance w eGFR > 60 Random Glucose 91 Calcium 9.3 Magnesium 2.2 Total Bilirubin 0.6 AST 35 ALT 44 Alkaline Phosphatase 91 Creatine Kinase 156 Creatine Kinase Index 0.7 CK-MB (CK-2) 1.2 Troponin I < 0.02 Total Protein 7.7 Albumin 4.0 Lipase 81 07/25/18 07/25/18 09:59 08:41 RBC 5.22 Cancelled MCV 82.2 Cancelled MCHC 33.9 Cancelled RDW 14.3 Cancelled MPV 8.5 Cancelled Neutrophils % Cancelled Lymphocytes % Cancelled Monocytes % Cancelled Eosinophils % Cancelled Basophils % Cancelled - Medications Given in the ED: ED Medications Discontinued Medications Generic Name Dose Route Start Last Admin Trade Name Andi PRN Reason Stop Dose Admin Famotidine/Sodium Chloride 20 mg in 50 mls @ 100 mls/hr 07/25/18 08:05 09:06 Pepcid 20 Mg Premixed Ivpb - IVPB 07/25/18 08:34 100 mls/hr ONCE ONE Administration Sodium Chloride 1,000 mls @ 1,000 mls/hr 07/25/18 08:05 07/25/18 09:05 Normal Saline - IV 07/25/18 09:04 1,000 mls/hr ASDIR STA Administration Ondansetron HCl 4 mg 07/25/18 08:05 07/25/18 09:06 Zofran Injection IVPUSH 07/25/18 08:06 4 mg ONCE ONE Administration <Alfredo Hodges - Last Filed: 07/25/18 11:15> - LABORATORY CBC & Chemistry Diagram: 07/25/18 09:59 07/25/18 08:41 <Eliseo Oswald - Last Filed: 07/25/18 11:27> Medical Decision Making - Medical Decision Making 07/25/18 08:49 Patient is 58M with history of HTN here today with epigastric pain. Vitals normal and stable. DDx includes, but is not limited to: pancreatitis, ACS, gastritis. Will workup with abdominal labs, ekg, trop. Will treat with fluids, pepcid, and zofran. Do not suspect bowel obstruction given patient is tolerating PO without difficulty and having normal bowel movements, so will not repeat CT. D/w Dr Hodges. 07/25/18 10:40 EKG shows normal sinus rhythm with rate of 60. No st elevations/depressions. Left axis. Normal intervals. No significant t wave changes. CBC, CMP normal. Troponin undetectable. Lipase negative. Believe patient most likely has gastritis and will need outpatient GI follow up. Given return precautions, patient expressed understanding. <Eliseo Oswald - Last Filed: 07/25/18 11:27> *DC/Admit/Observation/Transfer <Alfredo Hodges - Last Filed: 07/25/18 11:15> - Discharge Dispostion Decision to Admit order: No <Eliseo Oswald - Last Filed: 07/25/18 11:27> Diagnosis at time of Disposition: Gastritis - Discharge Dispostion Disposition: HOME Condition at time of disposition: Good - Prescriptions Prescriptions: Metoclopramide HCl [Reglan -] 10 mg PO BID #10 tablet - Referrals Referrals: Cathi Aguilar MD [Primary Care Provider] - Brendon Curran MD [Staff Physician] - - Patient Instructions Printed Discharge Instructions: DI for Gastritis Additional Instructions: Please follow up with a GI specialist, a referral is in your paperwork below. Take Pepcid 20mg twice a day for two weeks. Take Maalox as needed for breath through pain. Please return to the ED if you have any new, worsening or concerning symptoms, especially fever, increasing pain and vomiting. - Post Discharge Activity Forms/Work/School Notes: Back to Work
[2018-07-25] MEDS ORDERED: ONDANSETRON 4 MG/2 ML VIAL ONE (08:53)
[2018-07-25 09:36] LABS: ALK PHOS 91 U/L (45-117); ANION GAP 10 MMOL/L (8-16); BILIRUBIN,TOTAL 0.6 mg/dL (0.2-1); BLOOD UREA NITROGEN 14 mg/dL (7-18); CALCIUM 9.3 mg/dL (8.5-10.1); CHLORIDE 101 mmol/L (98-107); CO2 28 mmol/L (21-32); GLUCOSE,RANDOM 91 mg/dL (74-106); LIPASE 81 U/L (73-393); MAGNESIUM 2.2 mg/dL (1.8-2.4); POTASSIUM 4.6 mmol/L (3.5-5.1); SGOT/AST 35 U/L (15-37); SGPT/ALT 44 U/L (13-61); SODIUM 138 mmol/L (136-145); TOT PROT 7.7 g/dl (6.4-8.2)
[2018-07-25 10:07] LABS: HEMATOCRIT 42.9 % (35.4-49); HEMOGLOBIN 14.5 GM/dL (11.7-16.9); MCH 27.8 pg (25.7-33.7); MCHC 33.9 g/dl (32.0-35.9); MEAN CELL VOLUME 82.2 fl (80-96); MEAN PLT VOLUME 8.5 fl (7.5-11.1); PLATELET COUNT 295 K/MM3 (134-434); RBC 5.22 M/mm3 (4.00-5.60); RDW 14.3 % (11.9-15.9); WHITE BLOOD COUNT 8.5 K/mm3 (4.0-10.0)
--- NOTE | 2018-07-25 10:57 | PDOC ---
Attending Attestation - Resident Resident Name: Eliseo Oswald - ED Attending Attestation I have performed the following: I have examined & evaluated the patient, The case was reviewed & discussed with the resident, I agree w/resident's findings & plan - HPI HPI: 07/25/18 10:53 58-year-old male with recent ED workups for persistent abdominal distention and epigastric pain including admission 3 days ago after CAT scan revealed questionable partial small bowel obstruction, ultimately diagnosed with gastroenteritis now presents again with intermittent epigastric discomfort. The pain is very localized, sharp, typically brought on by drinking or eating, not associated with nausea or vomiting, positive flatus but some constipation, no fevers or chills. Intermittently takes Zantac with relief, presents for reevaluation. Has had endoscopy in the past, reportedly was diagnosed with a small ulcer but denies any evidence of bleeding. - Physicial Exam PE: 07/25/18 10:55 Vitals are normal, afebrile Well-appearing, no jaundice or pallor Abdomen is distended but soft and nontender, no guarding or rebound, isolated discomfort to the epigastric region, bowel sounds are normal, no CVA tenderness - Medical Decision Making 07/25/18 10:55 58-year-old male with recent GI workup and admission presents now with persistent intermittent epigastric discomfort. Presentation is most consistent with post gastroenteritis gastritis, possible mild ileus. No evidence of obstruction, abdominal exam is nonfocal and has no peritoneal findings. Repeat labs are again normal No indication for emergent imaging Recommend standing course of antacids, GI referral for endoscopy, understands return criteria Heart Score/ECG Review #1 ECG reviewed & interpreted by me at: 09:09 General ECG Interpretation: Sinus Rhythm, Normal Rate (60), Normal Intervals ( qtc 430, borderline LVH), No acute ischemic changes
--- NOTE | 2018-07-26 11:35 | EKG ---
Test Reason : Blood Pressure : / mmHG Vent. Rate : 060 BPM Atrial Rate : 060 BPM P-R Int : 176 ms QRS Dur : 094 ms QT Int : 430 ms P-R-T Axes : 051 -39 -09 degrees QTc Int : 430 ms NORMAL SINUS RHYTHM WITH SINUS ARRHYTHMIA LEFT AXIS DEVIATION INCOMPLETE RIGHT BUNDLE BRANCH BLOCK VOLTAGE CRITERIA FOR LEFT VENTRICULAR HYPERTROPHY ABNORMAL ECG WHEN COMPARED WITH ECG OF 21-JUL-2018 07:12, INCOMPLETE RIGHT BUNDLE BRANCH BLOCK IS NOW PRESENT Confirmed by BRANDT MORALES, MAE ([id number]) on 07/26/2018 11:34:47 AM Referred By: Confirmed By:MAE CARLTON MD
== END 2018-07-25 11:10 | disposition home or self-care (01) ==
LOC: JER 06:37
PROC: 3E033GC Introduction of Other Therapeutic Substance into Peripheral Vein, Percutaneous Approach (ICD-10-PCS; principal; 2018-07-25)
PROC: 3E033GC Introduction of Other Therapeutic Substance into Peripheral Vein, Percutaneous Approach (ICD-10-PCS; 2018-07-25)
DX: K29.70 Gastritis, unspecified, without bleeding (principal); I10 Essential (primary) hypertension; Z91.013 Allergy to seafood
CPT/HCPCS: 80053; 82550; 82553; 83690; 83735; 84484; 85027; 93005; 93010; 99283-25; J7030

== ENCOUNTER 2018-07-27 01:01 | Emergency (ER) | payer OTHER ==
[2018-07-27 01:22] VITALS: BP 122/77; PULSE 83; TEMP 97.8; BMI 36.4
--- NOTE | 2018-07-27 01:32 | PDOC ---
History of Present Illness - General Chief Complaint: Pain, Acute Stated Complaint: ABD PAIN - History of Present Illness Initial Comments: Jose De Jesus Thompson is a 58yo man with a h/o HTN who presents today complaining of epigastric pain and diarrhea. He reports that the pain is keeping him from sleeping. Mr Thompson has been seen three times this week with the same complaint, including an admission with evaluation by surgery. Mr Thompson denies any new symptoms today. He states that his pain is completely unchanged since he was seen in the ED yesterday. He also reports that he saw Dr Curran earlier today for evaluation, and he was scheduled for an EGD and colonoscopy later this month on 08/08. However, he states that he is still having pain and he cannot wait until the . His goal in presenting to the ED today is to have someone "look inside his stomach" to figure out what is causing the pain or to see if there is an ulcer. He says that he was prescribed pantoprazole by Dr Curran, and he took that without any relief of his pain. He also states that he will continue coming back to the emergency department as long as the pain persists. He also reports that he is having diarrhea, but that this is also unchanged from his previous visits. He also reports that he was told to take miralax daily by Dr Curran, so he did take miralax earlier today. He has been able to eat, however, and denies any significant nausea. He also denies fevers, chills, or abdominal pain in any other location. Past History - Past Medical History Allergies/Adverse Reactions: Allergies Allergy/AdvReac Type Severity Reaction Status Date / Time No Known Drug Allergies Allergy Verified 07/21/18 05:22 Shellfish Allergy Swelling Verified 07/21/18 05:21 Home Medications: Ambulatory Orders Amlodipine Besylate/Benazepril [Lotrel 5-20 mg Capsule] 1 each PO DAILY #30 cap 07/22/18 Metoclopramide HCl [Reglan -] 10 mg PO BID #10 tablet 07/25/18 Anemia: No Asthma: No Cancer: No Cardiac Disorders: No CVA: No COPD: No CHF: No Dementia: No Diabetes: No GI Disorders: No Disorders: No HTN: Yes Hypercholesterolemia: No Liver Disease: No Seizures: No Thyroid Disease: No - Surgical History Abdominal Surgery: No Appendectomy: No Cardiac Surgery: No Cholecystectomy: No Lung Surgery: No Neurologic Surgery: No Orthopedic Surgery: No - Immunization History Td Vaccination: No - Suicide/Smoking/Psychosocial Hx Smoking Status: No Smoking History: Never smoked Have you smoked in the past 12 months: No Number of Cigarettes Smoked Daily: 0 Information on smoking cessation initiated: No Hx Alcohol Use: No Drug/Substance Use Hx: No Substance Use Type: None Hx Substance Use Treatment: No Review of Systems - Review of Systems Comments:: General: No fevers, no chills, no weight or appetite change, no malaise HEENT: No changes in vision, no changes in hearing, no congestion, no sore throat CV: No chest pain, no palpitations, no LE edema Pulm: No SOB, no cough, no wheezing GI: +epigastric pain, +diarrhea : No frequency, no urgency, no dysuria Musc: No back pain, no joint swelling, no recent injury Skin: No rash, no lesions, no erythema Endo: No excessive thirst, no heat/cold intolerance Heme: No unusual bruising or bleeding, no swollen glands Neuro: No syncope, no numbness/tingling, no focal weakness Vasc: No claudication Psych: No recent change in mood, no SI or HI *Physical Exam - Vital Signs Last Vital Signs Temp Pulse Resp BP Pulse Ox 97.8 F 83 20 122/77 96 07/27/18 01:20 07/27/18 01:20 07/27/18 01:20 07/27/18 01:20 07/27/18 01:20 - Physical Exam Comments: General: Comfortable, no acute distress HEENT: PERRL, EOMI, MMM, voice normal, normal neck ROM, no LAD Cards: RRR, no murmur appreciated Pulm: Comfortable on room air, clear to auscultation bilaterally Abd: Soft, non-distended. Epigastrium mildly TTP Ext: Atraumatic. No LE edema. ROM intact. Strength 5/5 and equal bilaterally Vasc: Extremities WWP. Skin: Normal color, no rashes or lesions Neuro: A&Ox3, CN grossly intact, normal speech, motor/sensory grossly intact and symmetric Psych: Mood appropriate to situation Medical Decision Making - Medical Decision Making 07/27/18 02:29 Jose De Jesus Thompson is a 58yo man recently seen 3x this week for epigastric pain, admitted earlier in the week with surgery evaluation, who presents with epigastric pain and diarrhea. He reports his symptoms are identical to yesterday. - See by GI today, Dr Curran, with scheduled EGD and colonoscopy for the ( according to Mr Thompson). - Symptoms are identical to previous visits. Mr Thompson denies any changes in his symptoms. He states that he came because the pain continued even after he took the pantoprazole prescribed by Dr Curran. States he will continue to come daily if the pain continues - Labs on 07/20, 07/21, 07/22, 07/25. No additional labs warrented today. - Recent abdominal CT on 07/21 with no change in symptoms. No indication for repeat imaging today - Given sucralfate, viscous lidocaine, bentyl, maalox for symptom relief. - Mr Thompson states that he wants the EGD done now. Explained that we cannot complete the EGD in the ED today. 07/27/18 03:16 - Minimal improvement following medications - Discussed with Mr Thompson that he needs to continue the medications recommended by Dr Curran and allow his gastric irritation to resolve - Will give ranitidine for additional symptom control 07/27/18 03:48 - Plan to discharge home - Mr Thompson states understanding and will continue his pantoprazole at home. He also states that he has Maalox, ranitidine, tums at home for continued symptoms - Recommended follow up with his PMD. Seen and discussed with Dr Sen. Rima Enriquez PGY1 *DC/Admit/Observation/Transfer Diagnosis at time of Disposition: Gastritis - Discharge Dispostion Disposition: HOME Condition at time of disposition: Stable Decision to Admit order: No - Referrals Referrals: Cathi Aguliar MD [Primary Care Provider] - - Patient Instructions Printed Discharge Instructions: DI for Gastritis, DI for Gastric Ulcer Additional Instructions: Discharge Instructions: - You were seen in the ED for upper abdominal pain. Your symptoms are most likely due to your previously diagnosed gastritis. - Please continue to take the pantoprazole prescribed by your GI doctor. - It will probably take a few days for your pain to go away completely, especially if there is a stomach ulcer. The pain is caused by irritation in your stomach, and the irritated area needs to heal. The pantoprazole will help allow your stomach to heal. - You may also consider using Maalox or Tums to help with your symptoms. - It might be easier to take small, frequent sips of water and bites of food rather than a large glass of water or full meal - Avoid acidic or spicy food/drink, coffee, carbonated beverages, or anything that you have noticed particularly irritates your stomach - Seek medical care if you start vomiting material that looks like coffee grounds or blood, you have black tar-like stool, or your abdominal pain suddenly and significantly worsens. - Post Discharge Activity Forms/Work/School Notes: Back to Work
[2018-07-27] MEDS ORDERED: DICYCLOMINE HCL 10 MG/5 ML PO ONE (01:49)
[2018-07-27] MEDS ORDERED: MAG HYDROX/AL HYDROX/SIMETH 30 ML UNIT-DOSE CUP PO ONE (01:49)
[2018-07-27] MEDS ORDERED: LIDOCAINE VISCOUS 2% ORAL/TOP 20 ML UNIT-DOSE CUP MM ONE (01:49)
[2018-07-27] MEDS ORDERED: SUCRALFATE 1 GM/10 ML UNIT DOSE CUPS PO ONE (01:51)
--- NOTE | 2018-07-27 01:54 | PDOC ---
Attending Attestation - HPI HPI: 07/27/18 02:05 The patient is a 58-year-old male with a past medical history significant for HTN presents to the emergency department with persistent abdominal pain. The patient presents with a sharp localized pain that exacerbated with eating and drinking, with some constipation. The patient was admitted to the hospital on after CAT scan revealed questionable partial SBO. The patient was diagnosed with gastroenteritis, that was treated and discharged home on 07/22. The patient was seen on 06/24 for similar complain of abdominal distention and epigastric pain, discharged with a referral to follow up with GI. The patient reports following up with Dr. Curran was scheduled for further work up. The patient presented today secondary to the pain, denies any change in severity or quality of the pain, denies new onset of symptoms. Allergies: NKDA, Shellfish. - Medical Decision Making 07/27/18 02:05 Documentation prepared by Echo Del Castillo, acting as emergency medical services coordinator for Flo Sen MD. <Echo Del Castillo - Last Filed: 07/27/18 02:05> - Resident Resident Name: Rima Enriquez - ED Attending Attestation I have performed the following: I have examined & evaluated the patient, The case was reviewed & discussed with the resident, I agree w/resident's findings & plan, Exceptions are as noted - Physicial Exam PE: 07/27/18 04:33 Agree with resident exam - Medical Decision Making 07/27/18 04:33 persistent epigastric px, GI on board for out patient endoscopy analgesia, re-eval Symptomatic relief after intervention DC home with po medication and c/w planned follow up Strict return instructions <Flo Sen - Last Filed: 07/27/18 04:34>
[2018-07-27] MEDS ORDERED: SUCRALFATE 1 GM TABLET (FP) ONE (02:06)
[2018-07-27] MEDS ORDERED: DICYCLOMINE HCL 10 MG CAPSULE ONE (02:06)
[2018-07-27] MEDS ORDERED: LIDOCAINE VISCOUS 2% ORAL/TOP 20 ML UNIT-DOSE CUP ONE (02:06)
[2018-07-27] MEDS ORDERED: MAG HYDROX/AL HYDROX/SIMETH 30 ML UNIT-DOSE CUP ONE (02:07)
[2018-07-27] MEDS ORDERED: RANITIDINE HCL 150 MG TABLET (FP) PO ONE (03:15)
[2018-07-27] MEDS ORDERED: RANITIDINE HCL 150 MG TABLET (FP) ONE (03:22)
== END 2018-07-27 04:34 | disposition home or self-care (01) ==
LOC: JER 01:01
DX: K29.70 Gastritis, unspecified, without bleeding (principal); I10 Essential (primary) hypertension
CPT/HCPCS: 99282-25

== ENCOUNTER 2021-12-07 11:59 | Emergency (ER) | payer OTHER ==
[2021-12-07 12:07] VITALS: BP 166/79; PULSE 68; TEMP 98.3; BMI 28.6
== END 2021-12-07 12:37 | disposition home or self-care (01) ==
LOC: JERFT 11:59
DX: S00.83XA Contusion of other part of head, initial encounter (principal); W18.2XXA Fall in (into) shower or empty bathtub, initial encounter
CPT/HCPCS: 99281-25